=== PATIENT | male | born 1935 | race Caucasian/White ===

== ENCOUNTER 2018-03-10 11:28 | Inpatient (IN) | payer OTHER ==
[2018-03-10] MEDS ORDERED: ATROPINE SULFATE 1 MG/10 ML SYR IVP ONE (11:35)
[2018-03-10] MEDS ORDERED: NS 500 ML IV ONE (11:35)
[2018-03-10] MEDS ORDERED: MIDAZOLAM 2 MG/2 ML VIAL IVP ONE (11:35)
[2018-03-10] MEDS ORDERED: fentaNYL 100 MCG/2 ML INJ IVP ONE (11:35)
[2018-03-10] MEDS ORDERED: BENZOCAINE UNIT DOSE SPRAY HURRICAINE MM ONE (11:35)
--- NOTE | 2018-03-10 12:33 | PDPROPOC ---
Sedation Plan of Care Sedation Plan of Care: vital signs stable, mental status noted, patient educated of risks, benefits, alternatives, patient can tolerate sedation ASA Classification: ASA 4 Planned drugs: fentanyl, midazolam, other (etomidate) Mallampati Score: Class 4 Mallampati Reference Image: Patient passed 3-3-2 rule?: No
--- NOTE | 2018-03-10 12:33 | PDHPUP ---
History & Physical Update H&P update statement: This history and physical update is based on an assessment of the patient which was completed after admission or registration (within 24 hours), but prior to the surgery/procedure. H&P update: changes noted (patient is miserable and in heart fialure... May need admit for Tikosyn load if cardioversion unsuccessful)
[2018-03-10 12:37] LABS: INR 1.53 (0.83-1.16); PROTIME(PATIENT) 18.5 SEC (12.0-15.0)
[2018-03-10] MEDS ORDERED: ETOMIDATE 40 MG/20 ML INJ ONE (12:46)
--- NOTE | 2018-03-10 16:07 | CPEKG ---
Test Reason : OPEN Blood Pressure : / mmHG Vent. Rate : 097 BPM Atrial Rate : 000 BPM P-R Int : 191 ms QRS Dur : 136 ms QT Int : 390 ms P-R-T Axes : 000 -53 019 degrees QTc Int : 496 ms Atrial fibrillation Intermittent V pacing Right bundle branch block Inferior infarct, old Compared with 02/04/2018 AF now seen Confirmed by Neetu Maki ([id number]) on 03/10/2018 4:07:16 PM Referred By: Confirmed By:Neetu Maki
--- NOTE | 2018-03-10 16:11 | CPEKG ---
Test Reason : OPEN Blood Pressure : / mmHG Vent. Rate : 075 BPM Atrial Rate : 070 BPM P-R Int : 177 ms QRS Dur : 141 ms QT Int : 409 ms P-R-T Axes : 060 -53 012 degrees QTc Int : 457 ms Atrial-paced complexes Ventricular premature complex Right bundle branch block Inferior infarct, old Compared with 03/10/2018 at 11:50 am A and V pacing now noted Confirmed by Neetu Maki ([id number]) on 03/10/2018 4:10:47 PM Referred By: Confirmed By:Neetu Maki
--- NOTE | 2018-03-10 16:34 | CPIP ---
DATE OF PROCEDURE: 03/10/2018 PROCEDURE PERFORMED: 1. Elective direct current cardioversion. 2. Admit to hospital for Tikosyn load and administration. COMPLICATIONS: None. RESOURCE ANALYST: Marshall Pardo MD INDICATIONS/APPROPRIATE USE CRITERIA: The patient has symptoms of heart failure and has been noted t o be in atrial fibrillation on the basis of his outpatient home monitoring equipment for his new pace maker that was placed toward the end of January. He apparently has been in atrial fibrillation since February 20 with relatively rapid ventricular response and feels miserable. He is short of breath with minimal exertion and has a significant decline in exercise tolerance, as well as severe exertio nal fatigue. Because the patient has been difficult to maintain in normal rhythm, we have decided to admit him for Tikosyn load following elective DC cardioversion. I conferred with the patient, his w cindy, and they note that 2 days following his pacemaker insertion that he has resumed his Eliquis and continued that twice a day and has not missed a single dose of the medication since the medication wa s held around the time of his pacemaker insertion. PROCEDURE IN DETAIL: Informed consent was obtained and n.p.o. status was confirmed. The patient has received 2 mg of intravenous Versed, followed by 8 mg of etomidate. After adequate deep sedation be en achieved, the patient underwent elective DC cardioversion with 360 joules of biphasic countershock , delivered with a patch in the anterior and posterior position with subsequent return of the rhythm to an atrial paced and V sensed rhythm. The patient tolerated the procedure well without immediate p ostoperative complications. The patient will be admitted for a Tikosyn load. We selected 0.25 mg of the drug to be given twice a day as a load and he will place on a standard preoperative order set with evaluation of his EKG dee or to the administration of each dose of the medication. He should be able to be discharged after 2 days of treatment. He will receive his first dose this evening. IMPRESSION: Successful elective direct current cardioversion with admission for oral Tikosyn load to help try to maintain normal sinus rhythm is patient with known cardiomyopathy who has decided he hoover s not wish to have a defibrillator at this time. /[id number]/MODL
[2018-03-10] MEDS: OXYBUTYNIN 5 MG EXT REL TAB PO SCH ×2 (18:33→20:42)
[2018-03-10] MEDS: CARVEDILOL 3.125 MG TAB PO SCH (18:33)
[2018-03-10] MEDS: DOFETILIDE 0.25 MG CAP PO SCH (20:41)
[2018-03-10] MEDS: PRESERVISION AREDS2 FORMULA EYE VIT 1 EACH PO SCH (20:42)
[2018-03-10] MEDS: PANTOPRAZOLE SODIUM 40 MG TAB PO SCH (20:42)
[2018-03-10] MEDS: APIXABAN 5 MG TAB PO SCH (20:43)
[2018-03-10 21:39] LABS: PLATELET COUNT 135 10^3/uL (150-400)
[2018-03-11] MEDS: APIXABAN 5 MG TAB PO SCH ×2 (08:31→20:51)
[2018-03-11] MEDS: CARVEDILOL 3.125 MG TAB PO SCH ×2 (08:31→18:14)
[2018-03-11] MEDS: FUROSEMIDE 40 MG TAB PO SCH (08:31)
[2018-03-11] MEDS: MULTIVITAMINS 1 EACH TAB PO SCH (08:32)
[2018-03-11] MEDS: PANTOPRAZOLE SODIUM 40 MG TAB PO SCH ×2 (08:33→20:52)
[2018-03-11] MEDS: OXYBUTYNIN 5 MG EXT REL TAB PO SCH ×3 (08:33→20:52)
[2018-03-11] MEDS: PRESERVISION AREDS2 FORMULA EYE VIT 1 EACH PO SCH ×2 (08:33→20:51)
[2018-03-11] MEDS ORDERED: LISINOPRIL 20 MG TAB PO SCH ×2 (09:00→21:00)
[2018-03-11] MEDS ORDERED: ATORVASTATIN CALCIUM 40 MG TAB PO SCH ×2 (09:00→21:00)
[2018-03-11] MEDS ORDERED: Herbals/Supplements -Info Only PO SCH (09:00)
[2018-03-11] MEDS: DOFETILIDE 0.25 MG CAP PO SCH ×2 (09:40→20:52)
--- NOTE | 2018-03-11 10:21 | PDMN ---
Medical Necessity Medical necessity: [facility] [id number] AFib: 83 yo s/p cardioversion and initiation of antiarrhythmic tikosyn loading and admin for CHF and Afib. Meets IP criteria.
--- NOTE | 2018-03-11 10:53 | PDCARPN ---
Cardiology Progress Note Chief Complaint: Atrial Fibrillation Assessment/Plan: Assessment: Atrial Fibrillation--Successful DCCV yesterday. Compliantly on Eliquis. Rhythm RSR this AM. HR today 74 bpm. Tikosyn Load: Dr Pardo admitted for Tikosyn Loading. He is tolerating well. Plan:Continue to monitor closely today. Possible DC tomorrow AM. 03/11/18 10:50 Subjective: I feel good. No complaints. Reviewed/Discussed With: multidisciplinary team (RN) Time Spent with Patient: greater than 25 minutes Time Spent with Patient: Greater than 25 minutes spent on this patients care, greater than 50% of time spent counseling, educating, and coordinating care regarding the above mentioned plan. Objective: Vital Signs (8 Hrs) Temp Pulse Resp BP Pulse Ox 03/11/18 09:42 100/56 L 03/11/18 08:00 36.5 C 71 24 H 115/69 95 03/11/18 04:00 36.3 C 64 20 103/46 L 91 L Intake/Output (24 Hrs) 03/10/18 03/11/18 03/12/18 05:59 05:59 05:59 Intake Total 945 Balance 945 Intake: Oral (ml) 945 Other: Weight 99.79 kg Intake Quantity Yes Sufficient Number of Voids Toilet 3 Result Diagrams: 03/10/18 21:28 03/12/18 03:53 - Physical Exam Constitutional: no apparent distress Cardiovascular: regular rate and rhythm, no murmurs, no rubs, no gallops Respiratory: clear to auscultate bilat, no crackles, no wheezes Skin: warm Neurologic: AAOx3 Psychiatric: cooperative, interactive ICD10 Worksheet Patient Problems: Problems Problem Status Onset Atrial fibrillation and flutter Acute
[2018-03-11] MEDS ORDERED: PROTOCOL POTASSIUM 1 DOSE MISC PRN ×2 (12:07→12:51)
[2018-03-11] MEDS ORDERED: PROTOCOL MAGNESIUM 1 DOSE IV PRN (12:07)
[2018-03-11] MEDS ORDERED: MAGNESIUM SULF 1 GM/DEXTROSE 100 ML IV ONE ×2 (12:30→13:36)
--- NOTE | 2018-03-11 14:36 | ASMTCMCOM ---
CM Note CM Note Notes: Patient admitted with worsening heart failure. He had a successful elective direct current cardioversion and is now being monitored for Tikosyn loading. Patient lives with his and is normally independent. No discharge needs anticipated, but Case Management available if this changes. Date Signed: 03/11/2018 02:35 PM Electronically Signed By:Tiffanie Meehan RN
--- NOTE | 2018-03-11 17:18 | CPEKG ---
Test Reason : OPEN Blood Pressure : / mmHG Vent. Rate : 070 BPM Atrial Rate : 072 BPM P-R Int : 167 ms QRS Dur : 138 ms QT Int : 419 ms P-R-T Axes : 066 -52 067 degrees QTc Int : 453 ms Sinus rhythm Right bundle branch block Inferior infarct, old Compared with A apcing no longer seen (or pacer spikes are diminuitive) Confirmed by Neetu Maki ([id number]) on 03/11/2018 5:18:30 PM Referred By: Confirmed By:Neetu Maki
--- NOTE | 2018-03-11 17:19 | CPEKG ---
Test Reason : OPEN Blood Pressure : / mmHG Vent. Rate : 071 BPM Atrial Rate : 071 BPM P-R Int : 167 ms QRS Dur : 135 ms QT Int : 449 ms P-R-T Axes : 072 -58 032 degrees QTc Int : 488 ms Atrial-paced complexes Right bundle branch block Confirmed by Neetu Maki ([id number]) on 03/11/2018 5:19:02 PM Referred By: Confirmed By:Neetu Maki
--- NOTE | 2018-03-11 17:29 | CPEKG ---
Test Reason : OPEN Blood Pressure : / mmHG Vent. Rate : 073 BPM Atrial Rate : 071 BPM P-R Int : 181 ms QRS Dur : 138 ms QT Int : 470 ms P-R-T Axes : 067 -52 -31 degrees QTc Int : 518 ms Atrial-paced complexes Ventricular premature complex RBBB and LAFB Anteroseptal infarct, old Confirmed by Neetu Maki ([id number]) on 03/11/2018 5:28:07 PM Referred By: Confirmed By:Neetu Maki
--- NOTE | 2018-03-11 17:30 | CPEKG ---
Test Reason : OPEN Blood Pressure : / mmHG Vent. Rate : 070 BPM Atrial Rate : 124 BPM P-R Int : 203 ms QRS Dur : 142 ms QT Int : 453 ms P-R-T Axes : 058 -51 -23 degrees QTc Int : 489 ms Sinus rhythm with A paced beat Atrial premature complex RBBB and LAFB Confirmed by Neetu Maki ([id number]) on 03/11/2018 5:29:37 PM Referred By: Confirmed By:Neetu Maki
[2018-03-12] MEDS ORDERED: DOFETILIDE 0.25 MG CAP PO SCH
[2018-03-12] MEDS ORDERED: POTASSIUM CL 10 MEQ TAB PO ONE (07:49)
[2018-03-12 08:33] VITALS: BP 132/71
[2018-03-12] MEDS ORDERED: MAGNESIUM SULF 1 GM/DEXTROSE 100 ML IV ONE (08:46)
[2018-03-12] MEDS: DOFETILIDE 0.25 MG CAP PO SCH (09:31)
[2018-03-12] MEDS: FUROSEMIDE 40 MG TAB PO SCH (09:32)
[2018-03-12] MEDS: PRESERVISION AREDS2 FORMULA EYE VIT 1 EACH PO SCH (09:38)
[2018-03-12] MEDS: APIXABAN 5 MG TAB PO SCH (09:38)
[2018-03-12] MEDS: OXYBUTYNIN 5 MG EXT REL TAB PO SCH (09:39)
[2018-03-12] MEDS: CARVEDILOL 3.125 MG TAB PO SCH (09:39)
[2018-03-12] MEDS: PANTOPRAZOLE SODIUM 40 MG TAB PO SCH (09:39)
[2018-03-12] MEDS: MULTIVITAMINS 1 EACH TAB PO SCH (09:39)
--- NOTE | 2018-03-12 12:03 | ASMTLACE ---
LACE Length of stay for Answers: 1 day current admission Acuity / Level of Answers: Yes Care: Did the patient have an inpatient admission? Comorbidities - select Answers: Congestive heart failure all that apply Other Notes: afib # of Emergency department Answers: 1-2 visits in the last 6 months Score: 8 Date Signed: 03/12/2018 12:02 PM Electronically Signed By:Khloe Zaragoza
--- NOTE | 2018-03-12 18:41 | GDS ---
ADMIT DIAGNOSES: 1. Atrial fibrillation. 2. Planned Tikosyn load. DISCHARGE DIAGNOSES: 1. Atrial fibrillation with successful direct current cardioversion. 2. Successful Tikosyn load. The patient is an 83-year-old male who was admitted by Dr. Marshall Pardo, with atrial fibrillation. He was successfully DC cardioverted on 03/10/2018. Dr. Pardo then wanted to start him on Tikosyn loading for management of his atrial fibrillation. He has done well. He has been up ambulating. He has had no dizziness or shortness of breath. His blood pressure and heart rate have remained stable. EKGs have been done regularly 2 hours after receiving each dose. Dr. Lara and Dr. Darwin Nugent have reviewed the EKG readings prior to each dosing. At this time, he has had 4 doses of Tikosyn 0.25 mg and will continue taking it twice daily. He is stable for discharge at this time. MEDICATIONS: He will go home on Tikosyn 0.25 mg twice b.i.d., Protonix 40 mg b.i.d., Ditropan XL 5 mg t.i.d., multivitamin once daily, Motrin 400 mg every 4 hours as needed for pain, Lasix 40 mg daily, Lipitor 40 mg daily, Eliquis 5 mg twice daily, Norvasc 10 mg daily, Zestril 20 mg daily, Coreg 3.125 mg twice daily, herbal supplements 1 daily. He has intolerance to beta-blockers. PHYSICAL EXAMINATION: VITAL SIGNS: On day of discharge, blood pressure 132/71 , heart rate 77 and regular, oxygen saturation 91%. Cardiac rhythm is paced with occasional atrial premature complexes. He does have a right bundle branch block and left anterior fascicular block. Final EKG was done at 9:45 this morning, which was 2 hours after his last Tikosyn dose. Dr. Darwin Nugent reviewed EKG. It is atrial paced, right bundle branch block, old anterior infarct, QT 468, QTc 513. When recalculated closer to 500, this is stable. HEART: Rate regular. Mild murmur. No rubs or gallops. RESPIRATORY: Lung sounds are clear to auscultation. No wheezes, rales, or rhonchi. DISCHARGE PLAN: He does have a followup scheduled with DEYANIRA Marion, in 1 week. Should he feel dizzy, faint, or any unusual symptoms, he is asked to call [facility] at this time. He currently is stable for discharge. /[id number]/MODL MTDD
--- NOTE | 2018-03-13 18:44 | CPEKG ---
Test Reason : OPEN Blood Pressure : / mmHG Vent. Rate : 073 BPM Atrial Rate : 069 BPM P-R Int : 172 ms QRS Dur : 145 ms QT Int : 455 ms P-R-T Axes : 074 -55 -11 degrees QTc Int : 502 ms Atrial-paced complexes Right bundle branch block Inferior infarct, age indeterminate Anteroseptal infarct, old Confirmed by Neetu Maki ([id number]) on 03/13/2018 6:43:55 PM Referred By: Confirmed By:Neetu Maki
--- NOTE | 2018-03-13 18:55 | CPEKG ---
Test Reason : OPEN Blood Pressure : / mmHG Vent. Rate : 072 BPM Atrial Rate : 072 BPM P-R Int : 241 ms QRS Dur : 138 ms QT Int : 468 ms P-R-T Axes : 076 -55 -32 degrees QTc Int : 513 ms Atrial-paced complexes Right bundle branch block Probable inferior infarct, age indeterminate Anterior infarct, old Confirmed by Neetu Maki ([id number]) on 03/13/2018 6:55:07 PM Referred By: Confirmed By:Neetu Maki
== END 2018-03-12 13:30 | disposition home or self-care (01) | DRG 310 ==
LOC: FCATH 11:28 → F2W 13:53 → OBSVTOIN 15:25 → F2W 15:45
PROVIDERS: ADMIT Internal Medicine Cardiovascular Disease; ATTEND Internal Medicine Cardiovascular Disease
PROC: 5A2204Z Restoration of Cardiac Rhythm, Single (ICD-10-PCS; principal; 2018-03-10)
DX: I48.91 Unspecified atrial fibrillation (principal); I45.10 Unspecified right bundle-branch block; I44.4 Left anterior fascicular block; I25.10 Atherosclerotic heart disease of native coronary artery without angina pectoris; I42.9 Cardiomyopathy, unspecified; E78.5 Hyperlipidemia, unspecified; I10 Essential (primary) hypertension; G47.33 Obstructive sleep apnea (adult) (pediatric); Z95.0 Presence of cardiac pacemaker; Z79.01 Long term (current) use of anticoagulants; Z95.1 Presence of aortocoronary bypass graft
CPT/HCPCS: J2250; J3010; J3475

== ENCOUNTER 2018-03-25 08:38 | Day surgery (SDC) | payer OTHER ==
[2018-03-25] MEDS ORDERED: MIDAZOLAM 2 MG/2 ML VIAL IVP ONE (08:42)
[2018-03-25] MEDS ORDERED: NS 500 ML IV ONE (08:42)
[2018-03-25] MEDS ORDERED: ATROPINE SULFATE 1 MG/10 ML SYR IVP ONE (08:42)
[2018-03-25] MEDS ORDERED: fentaNYL 100 MCG/2 ML INJ IVP ONE (08:42)
--- NOTE | 2018-03-25 11:23 | CPEKG ---
Test Reason : OPEN Blood Pressure : / mmHG Vent. Rate : 075 BPM Atrial Rate : 076 BPM P-R Int : 185 ms QRS Dur : 135 ms QT Int : 453 ms P-R-T Axes : 064 -49 -02 degrees QTc Int : 506 ms Atrial-paced complexes Right bundle branch block Probable inferior infarct, age indeterminate Anteroseptal infarct, old Confirmed by Jaylen Bright ([id number]) on 03/25/2018 11:22:24 AM Referred By: Confirmed By:Jaylen Bright
== END 2018-03-25 09:47 | disposition home or self-care (01) ==
LOC: FCATH 08:38
PROVIDERS: ATTEND Internal Medicine Interventional Cardiology
DX: I48.91 Unspecified atrial fibrillation (principal); Z53.09 Procedure and treatment not carried out because of other contraindication

== ENCOUNTER → 2018-08-09 | Outpatient (CLI) | payer OTHER | LOC: FIMAGING 11:30 | PROVIDERS: ATTEND Physical Medicine & Rehabilitation Neuromuscular Medicine | DX: M43.16 Spondylolisthesis, lumbar region (principal); M51.36 Other intervertebral disc degeneration, lumbar region ==

== ENCOUNTER → 2018-08-11 | Outpatient (CLI) | payer OTHER | LOC: FIMAGING 13:30 | PROVIDERS: ATTEND Physical Medicine & Rehabilitation Neuromuscular Medicine | DX: M54.41 Lumbago with sciatica, right side (principal); M48.061 Spinal stenosis, lumbar region without neurogenic claudication ==